=== PATIENT | female | born 1965 | race Caucasian/White ===

== ENCOUNTER → 2017-05-21 | Outpatient (CLI) | payer OTHER ==
[~2017-05-21] MED LIST: VALA500T4 PO
== END | disposition home or self-care (01) ==
LOC: CFH 13:43
PROVIDERS: ATTEND Chiropractor
DX: M99.01 Segmental and somatic dysfunction of cervical region (principal); M99.02 Segmental and somatic dysfunction of thoracic region; M99.03 Segmental and somatic dysfunction of lumbar region; M99.04 Segmental and somatic dysfunction of sacral region; M25.561 Pain in right knee; M25.562 Pain in left knee
CPT/HCPCS: 72040; 72072; 72100; 72170

== ENCOUNTER 2017-09-15 20:25 | Emergency (ER) | payer OTHER ==
[~2017-09-15] VITALS: Ht 170.2 cm; Wt 88.9 kg
[2017-09-15 21:00] LABS: BASOPHILS # (AUTO) 0.03 x10^3/uL (0-0.1); BASOPHILS % (AUTO) 0 % (0-1); EOSINOPHILS # (AUTO) 0.07 x10^3/uL (0-0.4); EOSINOPHILS % (AUTO) 1 % (1-7); LYMPHOCYTES # (AUTO) 1.37 x10^3/uL (1-3.4); LYMPHOCYTES % (AUTO) 17 % (22-44); MD NO; MEAN CORPUSCULAR HEMOGLOBIN 30.8 pg (27.0-34.8); MEAN CORPUSCULAR HGB CONC 33.2 g/dL (32.4-35.8); MEAN CORPUSCULAR VOLUME 92.9 fL (80-100); MEAN PLATELET VOLUME 7.9 fL (7.4-10.4); MONOCYTES # (AUTO) 0.42 x10^3/uL (0.2-0.8); MONOCYTES % (AUTO) 5 % (2-9); NEUTROPHILS # (AUTO) 6.28 x10^3/uL (1.8-6.8); NEUTROPHILS % (AUTO) 77 % (42-75); PLATELET COUNT 238 x10^3/uL (130-400); RED BLOOD COUNT 4.68 x10^6/uL (3.82-5.3); RED CELL DISTRIBUTION WIDTH 13.2 % (9.6-15.2)
[2017-09-15 21:14] LABS: ALBUMIN 3.8 g/dL (3.4-5.0); ANION GAP 8 mmol/L (5-15); CALCIUM 9.3 mg/dL (8.5-10.1); CHLORIDE 107 mmol/L (98-107)
[2017-09-15 21:17] LABS: ALANINE AMINOTRANSFERASE 56 U/L (12-78); ALKALINE PHOSPHATASE 94 U/L (45-117); BILIRUBIN,TOTAL 0.7 mg/dL (0.2-1.0); CREATININE 0.83 mg/dL (0.55-1.02); TOTAL PROTEIN 7.4 g/dL (6.4-8.2)
[2017-09-15 22:07] LABS: MICROSCOPIC NOT IND
[2017-09-15 22:17] LABS: CULTURE INDICATED? NO
[2017-09-15] MEDS ORDERED: ONDANSETRON 2MG/ML, 2ML ONE (22:17)
[2017-09-15] MEDS ORDERED: HYDROmorphone 2 MG/ML, 1ML ONE (22:17)
[2017-09-15] MEDS ORDERED: DICYCLOMINE 10 MG/ML, 2ML ONE (22:18)
[2017-09-15] MEDS ORDERED: HYDROmorphone 1 MG/ML, 1ML IVPush PRN (22:30)
[2017-09-15] MEDS ORDERED: SODIUM CHLORIDE FLUSH 10ML SYR IVF ONE (22:30)
[2017-09-15] MEDS ORDERED: ONDANSETRON 2MG/ML, 2ML IVPush ONE (22:30)
[2017-09-15] MEDS ORDERED: DICYCLOMINE 10 MG/ML, 2ML IM ONE (22:30)
[2017-09-15 22:52] VITALS: BP 138/77
[2017-09-16] MEDS ORDERED: OMNIPAQUE 350 MG/ML, 100ML BOTTLE ONE (22:02)
== END 2017-09-15 23:51 | disposition home or self-care (01) ==
LOC: ED 23:10
DX: R10.84 Generalized abdominal pain (principal); R93.5 Abnormal findings on diagnostic imaging of other abdominal regions, including retroperitoneum
CPT/HCPCS: 36415; 74177; 76700; 80053; 81003; 83690; 85025; 86677; 96372; 96374; 96375; 99285; J0500; J1170; J2405; Q9967